=== PATIENT | male | born 1995 | race Caucasian/White ===

== ENCOUNTER 2017-03-30 11:43 | Emergency (ER) | payer SELFPAY ==
[~2017-03-30] VITALS: Ht 177.8 cm; Wt 134.7 kg
--- NOTE | ~2017-03-30 | EKG ---
[place], [place] ELECTROCARDIOGRAM REPORT NAME: LARY CORNELIUS UNIT #: [id number] ROOM: DOCTOR: DANISH MADERA,CHESTER BIRTHDATE: [birth year] DOS: 03/30/2017 TIME: 1214 hours. IMPRESSION: 1. Sinus rhythm. 2. Inferior nonspecific ST changes. 3. Normal QT interval. CHESTER PENG MD CM:EKGRPT:ELECTROCARDIOGRAM REPORT [id number] [id number] CHESTER PENG MD
--- NOTE | ~2017-03-30 | EKG ---
[place], [place] ELECTROCARDIOGRAM REPORT NAME: LARY CORNELIUS UNIT #: [id number] ROOM: DOCTOR: DANISH MADERA,CHESTER BIRTHDATE: [birth year] DOS: 03/30/2017 TIME: 1151. IMPRESSION: 1. Sinus rhythm. 2. Inferior nonspecific ST-T changes. 3. Normal QT interval. CHESTER PENG MD CM:EKGRPT:ELECTROCARDIOGRAM REPORT 1344 1530 CHESTER PENG MD
--- NOTE | ~2017-03-30 | EKG ---
[place], [place] ELECTROCARDIOGRAM REPORT NAME: LARY CORNELIUS UNIT #: [id number] ROOM: DOCTOR: DANISH MADERA,CHESTER BIRTHDATE: [birth year] DOS: 03/30/2017 TIME: 1253 hours. IMPRESSION: 1. Sinus rhythm. 2. Inferior nonspecific ST-T changes. 3. Anterior nonspecific ST elevation. 4. Normal QT interval. CHESTER PENG MD CM:EKGRPT:ELECTROCARDIOGRAM REPORT 1345 1536 CHESTER PENG MD
[2017-03-30 12:01] LABS: BASO # 0.1 10*3/uL (0.0-0.1); BASO % 0.6 % (0.0-1.0); EOS # 0.2 10*3/uL (0.0-0.4); EOS % 2.3 % (1.0-4.0); HEMATOCRIT 41.9 % (42.0-52.0); HEMOGLOBIN 14.3 g/dl (14.0-18.0); LYMPH # 3.1 10*3/uL (1.3-4.4); LYMPH % 30.2 % (27.0-41.0); MEAN CORPUSCULAR HGB CONC 34.1 g/dl (33.0-37.0); MEAN PLATELET VOLUME 11.2 fl (9.6-12.3); MONO # 0.9 10*3/uL (0.1-1.0); MONO % 9.1 % (3.0-9.0); NEUT # 5.9 10*3/uL (2.3-7.9); NEUT % 57.5 % (47.0-73.0); PLATELET COUNT AUTOMATED 277 10*3/uL (130-400); RED BLOOD COUNT 5.11 10*6/uL (4.50-5.90); RED CELL DISTRI WIDTH 14.3 % (0-14.5); WHITE BLOOD COUNT 10.3 10*3/uL (4.8-10.8)
[2017-03-30 12:10] LABS: ACT PARTIAL THROMBO TIME 25.7 SECONDS (20.8-31.5); INTERNATIONAL NORM RATIO 0.9 (2.0-3.5)
[2017-03-30 12:17] LABS: ALBUMIN 3.2 gm/dl (3.1-4.5); ALKALINE PHOSPHATASE 75 U/L (45-117); BUN 13 mg/dl (7-24); CHLORIDE 106 mmol/L (98-107); CREATININE 0.87 mg/dL (0.70-1.30); LIPASE 156 U/L (73-393); POTASSIUM 3.8 mmol/L (3.5-5.1); SGOT/AST 19 IU/L (3-35); SGPT/ALT 29 U/L (12-78); SODIUM 140 mmol/L (136-145); TOTAL PROTEIN 7.2 gm/dL (6.4-8.2); TROPONIN I < 0.015 ng/ml (<0.045)
[2017-03-30 14:11] LABS: BILIRUBIN NEGATIVE (NEGATIVE); BLOOD NEGATIVE (NEGATIVE); CLARITY CLEAR (CLEAR); COLOR YELLOW (YELLOW); GLUCOSE NEGATIVE (NEGATIVE); KETONE NEGATIVE (NEGATIVE); LEUKO ESTERASE NEGATIVE (NEGATIVE); NITRITE NEGATIVE (NEGATIVE); PH 5.5 (5.0-9.0); SPECIFIC GRAVITY >= 1.030 (1.005-1.030); UROBILINOGEN 0.2 E.U./dl (0.2-1.0)
[2017-03-30] MEDS ORDERED: PEPCID20 MG PO (16:53)
== END 2017-03-30 17:27 | disposition home or self-care (01) ==
LOC: ED 11:43
PROVIDERS: Emergency Medicine
DX: K29.00 Acute gastritis without bleeding (principal); R07.9 Chest pain, unspecified; Z91.030 Bee allergy status; Z91.018 Allergy to other foods